=== PATIENT | female | born 1955 | race Two or more races ===

== ENCOUNTER 2024-08-09 20:46 | Emergency (ER) | payer OTHER ==
[~2024-08-09] VITALS: Ht 152.4 cm; Wt 50.8 kg
[2024-08-09 21:33] VITALS: BP 107/74; O2SAT 98
[2024-08-09] MEDS ORDERED: ROSUVASTATIN CA10 MG PO (21:33)
[2024-08-09] MEDS ORDERED: FAMOTIDINE/PF 20 MG in 0.9 % SODIUM CHLORIDE 8 ML IV PUSH STA (22:14)
[2024-08-09] MEDS ORDERED: KETOROLAC TROMETHAMINE 30 MG VIAL IV ONE (22:15)
[2024-08-09] MEDS ORDERED: 0.9 % SODIUM CHLORIDE 1,000 ML IV SCH (22:15)
[2024-08-09] MEDS ORDERED: ONDANSETRON HCL 2 MG/ML VIAL IV ONE (22:15)
[2024-08-09] MEDS ORDERED: DIPHENOXYLATE HCL/ATROPINE 1 UDTAB TABLET PO ONE (22:15)
[2024-08-09] MEDS ORDERED: KETOROLAC TROMETHAMINE 30 MG VIAL ONE (22:33)
[2024-08-09] MEDS ORDERED: ONDANSETRON HCL 2 MG/ML VIAL ONE (22:34)
[2024-08-09] MEDS ORDERED: FAMOTIDINE/PF 20 MG/2 ML VIAL ONE (22:34)
[2024-08-09 23:10] LABS: HEMATOCRIT 42.6 % (36.0-45.00); HEMOGLOBIN 14.5 g/dL (12.0-15.00); MEAN CELL VOLUME 94.8 fL (80.00-100.00); MEAN CORPUSCULAR HEMOGLOBIN 32.2 pg (27.00-32.0); PLATELET COUNT 234 K/uL (150-450); RED BLOOD COUNT 4.49 M/uL (4.00-6.00); RED CELL DISTRIBUTION WIDTH 13.4 % (11.5-14.5)
[2024-08-09 23:51] LABS: ALBUMIN 3.8 gm/dL (3.4-5.0); BILIRUBIN TOTAL 0.82 mg/dL (0.3-1.2); CALCIUM 9.7 mg/dL (8.5-10.1); CREATININE SERUM 0.64 mg/dL (0.55-1.02); GFR 92.28; GLOBULINA 3.8 G/DL (2.4-3.5); POTASSIUM 3.85 mEq/L (3.5-5.1); TOTAL PROTEIN 7.6 gm/dL (6.4-8.2)
[2024-08-09] MEDS ORDERED: PEPCID AC20 MG PO (23:52)
[2024-08-09] MEDS ORDERED: ONDANSETRON ODT8 MG PO (23:52)
== END 2024-08-10 01:13 | disposition home or self-care (01) ==
LOC: ER 20:47
PROVIDERS: General Practice
DX: K52.89 Other specified noninfective gastroenteritis and colitis (principal)
CPT/HCPCS: 36415; 96365; 96366; 99282; J1885; J2405; J7030

== ENCOUNTER 2025-03-18 22:47 | Emergency (ER) | payer OTHER ==
[~2025-03-18] VITALS: Ht 160 cm; Wt 59.0 kg
[~2025-03-18 22:47] MED LIST: ONDANSETRON ODT8 MG PO; PEPCID AC20 MG PO; ROSUVASTATIN CA10 MG PO
[2025-03-18] MEDS ORDERED: 0.9 % SODIUM CHLORIDE 1,000 ML IV SCH (23:30)
[2025-03-18] MEDS ORDERED: MORPHINE SULFATE 4 MG/ML CARTRIDGE IV ONE (23:30)
[2025-03-18] MEDS ORDERED: PANTOPRAZOLE SODIUM 40 MG/VIAL VIAL IV ONE (23:30)
[2025-03-19 01:42] LABS: BASO % 0.2 % (0.1-1.2); EOS # 0.09 (0.04-0.54); EOS % 0.9 % (0.7-7.0); LYMPH # 0.58 (1.18-3.74); LYMPH % 5.7 % (19.3-53.1); MEAN PLATELET VOLUME 10.50 fl (9.4-12.4); MONO # 0.79 (0.24-0.82); MONO % 7.7 % (4.7-12.5); NEUT # 8.75 (1.56-6.13); NEUT % 85.2 % (34.0-71.1); RED CELL DISTRIBUTION WIDTH 12.9 % (11.6-14.4)
[2025-03-19 01:51] LABS: INR 0.98
[2025-03-19 02:09] LABS: ERYTHROCYTE SEDIMENTATION RATE 5 mm/hr (0-30)
[2025-03-19 02:54] LABS: ALT/SGPT 28 U/L (12-78); AST/SGOT 29 U/L (15-37); BILIRUBIN TOTAL 0.81 mg/dL (0.3-1.2); BUN CREA RATIO 24 (7.0-25.0); CKMB 1.4 NG/ML (0.5-3.6); CREATININE SERUM 0.86 mg/dL (0.55-1.02); GFR 65.42; GLOBULINA 3.7 G/DL (2.4-3.5); GLUCOSE FASTING 117 mg/dL (65-100); OSMOLALITY SERUM 291 MOSM/KG (275-295)
[2025-03-19 03:37] LABS: COVID-19 AG NEGATIVE (NEGATIVE)
[2025-03-19] MEDS ORDERED: DICYCLOMINE HCL 10 MG CAPSULE PO ONE ×2 (05:53→06:00)
[2025-03-19] MEDS ORDERED: PEPCID40 MG PO (07:11)
[2025-03-19] MEDS ORDERED: OMEPRAZOLE MAGN20 MG PO (07:11)
== END 2025-03-19 07:46 | disposition home or self-care (01) ==
LOC: ER
PROVIDERS: Student in an Organized Health Care Education/Training Program
DX: K29.00 Acute gastritis without bleeding (principal); R10.9 Unspecified abdominal pain; Z20.822 Contact with and (suspected) exposure to COVID-19
CPT/HCPCS: 36415; 71045; 93005; 96365; 96366; 99283; J2270; J3490; J7030